=== PATIENT | male | born 1980 | race Caucasian/White ===

== ENCOUNTER 2017-04-09 16:33 | Inpatient (IN) | payer OTHER ==
--- NOTE | ~2017-04-09 | PN ---
Unit #: [id number] #: [id number] Patient: TORIE ROCHA [id number] [facility] [address] [place] [address] [id number] MR#: [id number] NAME: TORIE ROCHA ROOM: P252 Age: 37 Sex: M Admission Date: 04/09/2017 : 1980 Attending Physician: Canelo Rivera M.D. Admitting Physician: Canelo Rivera M.D. Primary Care Physician: Primary Care Physician Sabina LEE PROGRESS NOTES DATE 04/11/2017 DISCUSSION The patient is a bit brighter today, and he is active within the therapeutic milieu. He is struggling with initiation of antidepressant medication but continues to complain of depressed mood and suicidal ideation. Dictated by... Canelo Rivera M.D. CB/bzg TD: 04/11/2017 13:24 JOB #: [id number] JESUS PROGRESS NOTES Page 1 of 1 X Canelo Rivera MD X PROGRESS NOTE
--- NOTE | ~2017-04-09 | PA ---
Unit #: [id number] #: [id number] Patient: TORIE ROCHA [id number] [facility] [address] [place] [address] [id number] I MR#: [id number] NAME: TORIE ROCHA. ROOM: [facility] Age: 37 Sex: M Admission Date: 04/09/2017 : 1980 Date of Assessment: 04/10/2017 Attending Physician: Canelo Rivera M.D. Admitting Physician: Canelo Rivera M.D. Primary Care Physician: Primary Care Physician No PSYCHIATRIC ASSESSMENT IDENTIFYING INFORMATION The patient is a 37-year-old white male admitted with increasing depression and suicidal ideation. CHIEF COMPLAINT None given. INFORMANT(S) Patient, reliability is good. HISTORY OF PRESENT ILLNESS The patient is a 37-year-old single white male who reports no prior history of psychiatric hospitalization. He has had an extensive substance abuse history but states that he has maintained sobriety for the past 2-1/2 years. Because of his substance abuse, he lost a lucrative job at [employer] and now finds himself living in a home with no running water or electricity with an alcoholic roommate. The patient reports suicidal ideation with plan to jump in the river. The patient denies prior suicide attempts or gestures. He reports no recent changes in sleep or appetite. He does complain of hopelessness and sad mood. He states he has been unable to hold a job in some time. He does report a history of previous treatment with antidepressant medication but reports that he did not comply with medication for a sufficient period of time to assess his efficacy. PAST PSYCHIATRIC HISTORY As above, the patient had spent a good deal of time with the [employer] and has as noted previously maintained sobriety for the past 2-1/2 years. PAST MEDICAL HISTORY Significant for history of obesity. MEDICATIONS None. ALLERGIES Codeine. FAMILY HISTORY The patient reports that his mother has suffered from psychiatric illness. SOCIAL HISTORY The patient lives under circumstances described previously. 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 He reports an extensive substance history. He is the father of an 8-year-old daughter with whom he has not had contact in 3 years. MENTAL STATUS EXAMINATION Examination at this time reveals the patient to be an somewhat disheveled white male appearing stated age. He is in no apparent physical distress at the time of examination. He is awake, alert, and oriented in all spheres. His mood is dysphoric, his affect constricted. Speech is generally well coherent. There are no gross deficits in memory or cognition noted. Intelligence is judged to be in the average range based on fund of knowledge. The patient is cooperative throughout the interview. He is currently endorsing positive suicidal ideation. He denies homicidal ideation. He denies any psychotic symptoms. His judgment and insight appear to be intact. ASSETS AND LIABILITIES The patient's assets: Motivation for change. Liabilities: Lack of resources. DIAGNOSTIC IMPRESSION 1. Major depressive disorder, recurrent, moderate. 2. Obesity. 3. Opioid use disorder in remission. 4. Cocaine use disorder in remission. 5. Alcohol use disorder in remission. TREATMENT PLAN The patient remains hospitalized for safety and stabilization. A trial of citalopram will be initiated to address the patient's depressive symptoms. He will participate in appropriate order of milieu activities. ESTIMATED LENGTH OF STAY 5 to 7 days. Suicide precautions are of course in place. Dictated by... Canelo Rivera M.D. Irineo TD: 04/10/2017 12:17 JOB #: [id number] PSYCHIATRIC ASSESSMENT Page 1 of 1 X Canelo Rivera MD X PSYCHIATRIC ASSESSMENT
--- NOTE | ~2017-04-09 | DS ---
Unit #: [id number] #: [id number] Patient: TORIE ROCHA [id number] [facility] [address] [place] [address] [id number] I MR#: [id number] NAME: TORIE ROCHA. ROOM: [facility] Age: 37 Sex: M Admission Date: 04/09/2017 : 1980 Discharge Date: 04/12/2017 Attending Physician: Canelo Rivera M.D. Primary Care Physician: Primary Care Physician No DISCHARGE SUMMARY REASON FOR ADMISSION The patient is a 37-year-old white male, admitted reporting increasing depression and suicidal ideation. HOSPITAL COURSE The patient was admitted to the -[facility] unit and placed on suicide precautions. He was begun on citalopram 20 mg daily to address depressive symptoms and tolerated the medication well. He showed brightening of mood and reduction in suicidal ideation and was in agreement with the plan for followup in the intensive outpatient program provided by this facility. Discharge was ordered as per the patient's request on 04/12/2017. FINAL DIAGNOSES Major depressive disorder, recurrent, moderate. DISPOSITION ON DISCHARGE The patient is discharged on the following medications; citalopram 20 mg daily for depression. DISCHARGE INSTRUCTIONS No dietary or physical restrictions were placed on the patient at the time of discharge. FOLLOWUP Followup will take place through the auspices of the intensive outpatient program and community mental health resources. PROGNOSIS The patient's prognosis is considered good. Dictated by... Canelo Rivera M.D. WILLIAMS/nasir TD: 04/12/2017 23:01 JOB #: [id number] Unit #: [id number] #: [id number] Patient: TORIE ROCHA DISCHARGE SUMMARY Page 1 of 1 X Canelo Rivera MD X DISCHARGE SUMMARY
--- NOTE | ~2017-04-09 | HP ---
Unit #: [id number] #: [id number] Patient: TORIE ROCHA [id number] [place] [address] [id number] MR#: [id number] NAME: TORIE ROCHA. ROOM: P252 Age: 37 Sex: M Admission Date: 04/09/2017 : 1980 Attending Physician: Canelo Rivera M.D. Admitting Physician: Canelo Rivrea M.D. Primary Care Physician: Primary Care Physician No HISTORY AND PHYSICAL HISTORY OF PRESENT ILLNESS Torie is a 37 year old admitted to [address] [place] [address] with depression and verbalizing wanting to hurt himself. PAST MEDICAL HISTORY Morbid obesity. PAST SURGICAL HISTORY Nothing reported. ALLERGIES Codeine. SOCIAL HISTORY Smokes 1/2 pack per day. Denies alcohol. Admits to a history of illicit substance abuse but nothing in at least 2 years. FAMILY HISTORY Medically noncontributory. REVIEW OF SYSTEMS CONSTITUTIONAL: No fever or chills. HEENT: Denies any sore throat, ear pain or runny nose. CARDIOVASCULAR: Denies chest pain, irregular heart rhythm or palpitations. CHEST: Denies shortness of breath or cough. No hemoptysis. GASTROINTESTINAL: Denies nausea, vomiting, diarrhea or chronic constipation. ENDOCRINE: Denies history of increased thirst or urination. No recent significant weight loss or gain. GENITOURINARY: Denies dysuria, frequency, or hematuria. SKIN: Denies any rashes. HEMATOLOGIC: Denies history of increased bleeding or bruising. MUSCULOSKELETAL: Denies any hot, swollen joints. No generalized muscle pain. NEUROLOGIC: Denies problems with vision or speech. No frequent, severe headaches. No numbness, tingling or weakness in any extremities. Denies loss of bladder or bowel control. CURRENT MEDICATIONS 1. Celexa 20 mg daily. 2. Melatonin 6 mg q.h.s. p.r.n. 3. Milk of Magnesia p.r.n. 4. Maalox p.r.n. Unit #: [id number] #: [id number] Patient: TORIE ROCHA 5. Tylenol p.r.n. 6. Nicotine patch 7 mg daily. PHYSICAL EXAMINATION GENERAL: Alert, well-nourished, in no apparent distress. VITAL SIGNS: Blood pressure 156/100, heart rate 94, respirations 16, temperature 98.6. WEIGHT: 300. HEIGHT: 6 feet 0 inches. SKIN: Warm and dry without rash or lesion. HEENT: Normocephalic. TMs not viewed. Oral and nasal passages clear. Conjunctivae clear. PERRLA. EOMs intact. NECK: Supple without lymphadenopathy or thyromegaly. HEART: Regular rate and rhythm without murmur. LUNGS: Clear. ABDOMEN: Soft, nontender. : Not done. EXTREMITIES: No evidence of cyanosis, clubbing or edema. Moves all without focal deficit. NEUROLOGICAL: Grossly within normal limits. Cranial Nerves: II: Visual garvey are intact. III, IV AND : Extraocular movements are intact. Pupils are equal, round and reactive to light. V: Facial sensation is grossly normal. VII: Facial movements and expression are normal. VIII: Auditory acuity grossly intact. IX, X: Uvula is midline. Phonation is normal. XI: Patient shrugs shoulders and turns head normally. XII: Tongue protrudes in the midline. Sensory and Motor Function: Sensory and motor sensation is grossly normal. Motor: moves all extremities well. Coordination: Gait is normal. Deep Tendon Reflexes: Intact. IMPRESSION Psychiatric admission. RECOMMENDATIONS PSYCHIATRIC: Per psychiatrist. MEDICAL: See no contraindications to participate in facility's activities. MEDICAL PROGNOSIS Good. MEDICAL CONDITION Stable. Dictated by... Cheri Washington P.A.-C. for Carmen Hdz/wyatt TD: 04/10/2017 17:42 JOB #: [id number] Unit #: [id number] #: [id number] Patient: TORIE ROCHA HISTORY AND PHYSICAL Page 1 of 1 X Cheri Washington HISTORY AND PHYSICAL
[2017-04-10 09:34] LABS: BASOPHIL# 0.1 X10e3 (0-0.3); BASOPHIL% 0.7 % (0-2.5); EOSINOPHIL# 0.2 X10e3 (0-0.7); HEMATOCRIT 47.5 % (38.0-50.0); HEMOGLOBIN 15.6 gm/dL (13.0-16.0); LYMPHOCYTE# 2.3 X10e3 (1.0-3.5); LYMPHOCYTE% 23.6 % (17.0-45.0); MEAN CORPUSCULAR HEMOGLOBIN 29.3 PG (28-34); MEAN CORPUSCULAR HGB CONC 32.9 g/dL (30-36); MEAN PLATELET VOLUME 9.1 FL (6.5-11.5); MONOCYTE# 0.9 X10e3 (0-1.0); MONOCYTE% 9.6 % (3.0-12.0); NEUTROPHIL# 6.2 X10e3 (1.5-7.1); NEUTROPHIL% 64.1 % (40-75); PLATELET COUNT 260 X10e3 (140-420); RED BLOOD COUNT 5.33 X10e (3.90-5.60); RED CELL DISTRIBUTION WIDTH 13.8 % (11.0-15.5); WHITE BLOOD COUNT 9.7 X10e3 (4.0-10.5)
[2017-04-10 10:04] LABS: DIFF IND NO
[2017-04-10 11:16] LABS: ALBUMIN SERUM 3.8 g/dL (3.5-5.0); BILIRUBIN,TOTAL 0.5 mg/dL (0.2-2.0); CALCIUM SERUM 9.2 mg/dL (8.4-10.2); CREATININE SERUM 0.9 mg/dL (0.6-1.4); GLOM FILT RATE Estimated 108.7 mL/min (>60); POTASSIUM 4.5 mmol/L (3.5-5.1); PROTEIN TOTAL SERUM 6.4 g/dL (6.0-8.3)
[2017-04-11 12:37] LABS: URINE APPEARANCE CLEAR; URINE BILIRUBIN NEG (NEG); URINE BLOOD NEG (NEG); URINE COLOR YELLOW; URINE GLUCOSE NEG (NEG); URINE KETONE NEG (NEG); URINE LEUKOCYTE ESTERASE NEG (NEG); URINE NITRATE NEG (NEG); URINE PH 6.5 (5-8); URINE PROTEIN NEG (NEG); URINE SPECIFIC GRAVITY 1.018 (1.003-1.035); URINE UROBILINOGEN 0.2 MG/DL (NEG)
[2017-04-11 12:49] LABS: AMPHETAMINE NEG (NEG); BARBITURATES NEG (NEG); BENZODIAZEPINES NEG (NEG); COCAINE NEG (NEG); MARIJUANA NEG (NEG); OPIATES NEG (NEG); TRICYCLIC ANTIDEPRESSANTS NEG (NEG); U METHADONE NEG (NEG)
== END 2017-04-12 15:38 | disposition home or self-care (01) | DRG 885 ==
LOC: P2L 19:07
PROVIDERS: Specialist
DX: F33.1 Major depressive disorder, recurrent, moderate (principal); R45.851 Suicidal ideations; E66.9 Obesity, unspecified; F11.21 Opioid dependence, in remission; F14.21 Cocaine dependence, in remission; F10.21 Alcohol dependence, in remission; Z88.5 Allergy status to narcotic agent; F17.210 Nicotine dependence, cigarettes, uncomplicated
CPT/HCPCS: 80053; 80307; 81003; 85025